=== PATIENT | male | born 1940 | race Caucasian/White ===

== ENCOUNTER → 2017-05-10 | Outpatient (CLI) | payer MEDICARE ==
[~2017-05-10] MED LIST: ACID CONTROLLER20 M1 PO; CARBIDOPA25 MG PO; CUBICIN RF500 MG IV; DAYPRO600 M1 PO; GLIPIZIDE5 MG PO; GLUCOPHAGE1000 MG PO; INVANZ1 GM IV; LIPITOR10 MG PO; Lovenox40 MG/0.4 PO; TENORMIN25 M1 PO; VENLAFAXINE75 M1 PO
[2017-05-10 11:42] LABS: BILIRUBIN NEGATIVE (NEGATIVE); BLOOD TRACE-INTACT (NEGATIVE); CLARITY CLEAR (CLEAR); COLOR YELLOW (YELLOW); GLUCOSE 3+ (NEGATIVE); KETONE NEGATIVE (NEGATIVE); LEUKO ESTERASE NEGATIVE (NEGATIVE); NITRITE NEGATIVE (NEGATIVE); PH 5.5 (5.0-9.0); UROBILINOGEN 0.2 E.U./dl (0.2-1.0)
[2017-05-10 11:52] LABS: BACTERIA TRACE; WBC 0-2 wbc/hpf (0-5)
[2017-05-11 10:09] LABS: CREATININE,URINE 48.7 mg/dL (Not Estab.); MICRO ALBUMIN/CRE RATIO 137.6 (0.0-30.0)
== END | disposition home or self-care (01) ==
LOC: US 07:30 → LAB 07:42
PROVIDERS: Family Medicine
DX: N18.3 Chronic kidney disease, stage 3 (moderate) (principal); E11.9 Type 2 diabetes mellitus without complications; M54.5 Low back pain; N39.9 Disorder of urinary system, unspecified; N28.9 Disorder of kidney and ureter, unspecified

== ENCOUNTER 2017-05-20 09:37 | Inpatient (IN) | payer MEDICARE ==
[~2017-05-20] VITALS: Ht 185.4 cm; Wt 90.9 kg
[2017-05-20] VITALS (8 sets, daily range): BP systolic 128–170; BP diastolic 61–96
[2017-05-20 10:08] LABS: BASO % 0.4 % (0.0-1.0); EOS # 0.3 10*3/uL (0.0-0.4); EOS % 3.7 % (1.0-4.0); HEMATOCRIT 37.4 % (42.0-52.0); HEMOGLOBIN 12.3 g/dl (14.0-18.0); LYMPH # 1.4 10*3/uL (1.3-4.4); LYMPH % 19.1 % (27.0-41.0); MEAN CELL VOLUME 97.4 fl (80.0-94.0); MEAN CORPUSCULAR HGB CONC 32.9 g/dl (33.0-37.0); MEAN PLATELET VOLUME 9.5 fl (9.6-12.3); MONO # 0.6 10*3/uL (0.1-1.0); NEUT # 4.9 10*3/uL (2.3-7.9); NEUT % 68.4 % (47.0-73.0); PLATELET COUNT AUTOMATED 182 10*3/uL (130-400); RED BLOOD COUNT 3.84 10*6/uL (4.50-5.90); RED CELL DISTRI WIDTH 12.2 % (0-14.5); WHITE BLOOD COUNT 7.2 10*3/uL (4.8-10.8)
[2017-05-20 10:24] LABS: ALBUMIN 3.6 gm/dl (3.1-4.5); CREATININE 1.89 mg/dL (0.70-1.30); POTASSIUM 5.2 mmol/L (3.5-5.1); TOTAL PROTEIN 7.6 gm/dL (6.4-8.2)
[2017-05-20 10:25] LABS: TROPONIN I 0.019 ng/ml (<0.045)
[2017-05-20 11:16] LABS: BILIRUBIN NEGATIVE (NEGATIVE); BLOOD TRACE-LYSED (NEGATIVE); CLARITY CLEAR (CLEAR); COLOR YELLOW (YELLOW); GLUCOSE 3+ (NEGATIVE); KETONE NEGATIVE (NEGATIVE); LEUKO ESTERASE NEGATIVE (NEGATIVE); NITRITE NEGATIVE (NEGATIVE); SPECIFIC GRAVITY <= 1.005 (1.005-1.030); UROBILINOGEN 0.2 E.U./dl (0.2-1.0)
[2017-05-20 11:24] LABS: RBC 0-2 rbc/hpf (0-2); WBC 0-2 wbc/hpf (0-5)
[2017-05-20] MEDS ORDERED: AMARYL4 MG PO (11:29)
[2017-05-20] MEDS ORDERED: METFORMIN1000 MG PO (11:29)
[2017-05-20] MEDS ORDERED: TOPROL XL25 MG PO (11:30)
[2017-05-20] MEDS ORDERED: MOBIC15 MG PO (11:31)
[2017-05-20] MEDS ORDERED: ASPIRIN325 M2 PO (11:51)
[2017-05-20] MEDS ORDERED: VICTOZA 2-0.6 MG/0.1 SQ (12:54)
[2017-05-21] VITALS: BP 142/82
[2017-05-21 07:00] LABS: BASO % 0.5 % (0.0-1.0); EOS # 0.2 10*3/uL (0.0-0.4); EOS % 4.1 % (1.0-4.0); HEMATOCRIT 35.3 % (42.0-52.0); HEMOGLOBIN 11.7 g/dl (14.0-18.0); LYMPH # 1.6 10*3/uL (1.3-4.4); LYMPH % 28.2 % (27.0-41.0); MEAN CELL VOLUME 97.5 fl (80.0-94.0); MEAN CORPUSCULAR HGB 32.3 pg (27.0-31.0); MEAN CORPUSCULAR HGB CONC 33.1 g/dl (33.0-37.0); MEAN PLATELET VOLUME 9.1 fl (9.6-12.3); MONO # 0.4 10*3/uL (0.1-1.0); MONO % 7.2 % (3.0-9.0); NEUT # 3.3 10*3/uL (2.3-7.9); NEUT % 59.6 % (47.0-73.0); PLATELET COUNT AUTOMATED 164 10*3/uL (130-400); RED BLOOD COUNT 3.62 10*6/uL (4.50-5.90); RED CELL DISTRI WIDTH 12.2 % (0-14.5); WHITE BLOOD COUNT 5.6 10*3/uL (4.8-10.8)
[2017-05-21 07:38] LABS: ALBUMIN 3.1 gm/dl (3.1-4.5); ALKALINE PHOSPHATASE 104 U/L (45-117); CHLORIDE 105 mmol/L (98-107); CHOLESTEROL 181 mg/dL (<200); CREATININE 1.38 mg/dL (0.70-1.30); HDL CHOLESTEROL 31 mg/dl (40-60); PHOSPHOROUS 2.5 mg/dL (2.5-4.9); POTASSIUM 4.7 mmol/L (3.5-5.1); SGOT/AST 36 IU/L (3-35); SGPT/ALT 53 U/L (12-78); SODIUM 140 mmol/L (136-145); TOTAL PROTEIN 6.6 gm/dL (6.4-8.2); TRIGLYCERIDES 531 mg/dl (<150)
[2017-05-21 07:44] LABS: ACT PARTIAL THROMBO TIME 26.7 SECONDS (20.8-31.5); FREE T4 0.78 ng/dl (0.76-1.46)
[2017-05-21 07:48] LABS: BUN 24 mg/dl (7-24)
[2017-05-21 08:00] VITALS: BP 144/86
[2017-05-21 09:10] LABS: VITAMIN D, 25-HYDROXY 18.5 ng/mL (30-100)
[2017-05-21] MEDS ORDERED: LIPITOR40 MG PO (10:24)
[2017-05-21] MEDS ORDERED: NOVOLOG FL100 UNIT/1 SQ (10:26)
[2017-05-21] MEDS ORDERED: LEVEMIR FL100 UNIT/1 SC (10:26)
== END 2017-05-21 10:56 | disposition home or self-care (01) | DRG 637 ==
LOC: ED 09:37 → 5E 11:05
PROVIDERS: Family Medicine; Nurse Practitioner Family
DX: E11.65 Type 2 diabetes mellitus with hyperglycemia (principal); N17.0 Acute kidney failure with tubular necrosis; E87.1 Hypo-osmolality and hyponatremia; F33.9 Major depressive disorder, recurrent, unspecified; Z79.899 Other long term (current) drug therapy; E87.8 Other disorders of electrolyte and fluid balance, not elsewhere classified; I25.10 Atherosclerotic heart disease of native coronary artery without angina pectoris; D53.9 Nutritional anemia, unspecified; E87.5 Hyperkalemia; R74.0 Nonspecific elevation of levels of transaminase and lactic acid dehydrogenase [LDH]; E78.5 Hyperlipidemia, unspecified; I10 Essential (primary) hypertension; E11.40 Type 2 diabetes mellitus with diabetic neuropathy, unspecified; Z96.653 Presence of artificial knee joint, bilateral; Z83.3 Family history of diabetes mellitus; Z79.82 Long term (current) use of aspirin

== ENCOUNTER → 2017-05-25 | Outpatient (CLI) | payer MEDICARE ==
[~2017-05-25] MED LIST changes: +AMARYL4 MG PO; +ASPIRIN325 M2 PO; +LEVEMIR FL100 UNIT/1 SC; +LIPITOR40 MG PO; +METFORMIN1000 MG PO; +MOBIC15 MG PO; +NOVOLOG FL100 UNIT/1 SQ; +TOPROL XL25 MG PO; +VICTOZA 2-0.6 MG/0.1 SQ
== END | disposition home or self-care (01) ==
LOC: CARD 03:41
DX: I25.2 Old myocardial infarction (principal)

== ENCOUNTER → 2017-06-17 | Outpatient (CLI) | payer MEDICARE ==
[~2017-06-17] MED LIST changes: -ASPIRIN325 M2 PO; +ASPIRIN81 M1 PO; +HYDROCODONE-AC1 EAC1 PO; +Meclizine25 MG PO; +PROMETHAZINE25 M1 PO; +PROZAC20 MG PO; +VICTOZA IJ
--- NOTE | ~2017-06-17 | ST ---
[place], [place] EXERCISE STRESS TEST REPORT NAME: EVERARDO BLISS UNIT #: [id number] ROOM: DOCTOR: DAVINA VIERA [facility],MELINDA BIRTHDATE: [birth year] DOS: 06/17/2017 STRESS CARDIOLITE The patient underwent stress test on stage 2 Earl protocol, up to 7 METS and up to 85% predicted heart rate, 133 per minute. No ischemic changes in the EKG. Isotope was injected and he exercised for a minute after injecting the isotope and myocardial perfusion scan to follow. No complication noted. Moderately deconditioned. Exercise tolerance is suboptimal. MELINDA GHOSH MD CM:STRESS:EXERCISE STRESS TEST REPORT [id number] HIRAL GHOSH MD [facility]
== END | disposition home or self-care (01) ==
LOC: CARD 01:28
DX: I25.2 Old myocardial infarction (principal); E11.9 Type 2 diabetes mellitus without complications; R94.31 Abnormal electrocardiogram [ECG] [EKG]; R53.81 Other malaise

== ENCOUNTER → 2017-06-24 | Outpatient (CLI) | payer MEDICARE ==
[2017-06-24 10:58] LABS: ALBUMIN 3.6 gm/dl (3.1-4.5); BILIRUBIN, DIRECT 0.2 mg/dL (0.0-0.2); CREATININE 1.56 mg/dL (0.70-1.30); POTASSIUM 5.2 mmol/L (3.5-5.1); TOTAL PROTEIN 7.7 gm/dL (6.4-8.2)
[2017-06-24 11:04] LABS: THYROID STIM HORMONE (HS) 2.09 uIU/ml (0.358-4.75)
== END | disposition home or self-care (01) ==
LOC: LAB 10:07
PROVIDERS: Psychiatry & Neurology Neurology
DX: E11.9 Type 2 diabetes mellitus without complications (principal)

== ENCOUNTER 2018-02-04 10:06 | Emergency (ER) | payer MEDICARE ==
[~2018-02-04] VITALS: Ht 185.4 cm; Wt 86.6 kg
[~2018-02-04 10:06] MED LIST changes: +METFORMIN HYD1000 MG PO; -METFORMIN1000 MG PO
[2018-02-04 10:09] VITALS: BP 119/73
== END 2018-02-04 11:48 | disposition home or self-care (01) ==
LOC: ED 10:06
DX: S62.617A Displaced fracture of proximal phalanx of left little finger, initial encounter for closed fracture (principal); I25.10 Atherosclerotic heart disease of native coronary artery without angina pectoris; E78.5 Hyperlipidemia, unspecified; I10 Essential (primary) hypertension; E11.65 Type 2 diabetes mellitus with hyperglycemia; E11.40 Type 2 diabetes mellitus with diabetic neuropathy, unspecified; Z98.890 Other specified postprocedural states; Z79.899 Other long term (current) drug therapy; Z79.82 Long term (current) use of aspirin; W19.XXXA Unspecified fall, initial encounter; Y93.89 Activity, other specified; Y92.89 Other specified places as the place of occurrence of the external cause; Y99.9 Unspecified external cause status

== ENCOUNTER 2018-02-23 12:17 | Inpatient (IN) | payer MEDICARE ==
[~2018-02-23] VITALS: Ht 185.4 cm; Wt 83.6 kg
--- NOTE | ~2018-02-23 | CON ---
[place], [place] REPORT OF CONSULTATION NAME: [facility]ISS [id number] UNIT #: [id number] ROOM: 419 DOCTOR: PHD JESU MARY BIRTHDATE: [birth year] DOS: 02/28/2018 HISTORY OF PRESENT ILLNESS: The patient is a 77-year-old male with history of coronary artery disease, chronic kidney disease, hyperlipidemia, hypertension, and diabetes, who was referred by the hospitalist for memory evaluation. At the present time, the patient is on the 4th floor at [facility]. The patient has been experiencing memory problems for several years. Per his family, he has struggled to pay the bills and experiences fluctuating confusion. A CT of his head performed on 02/27/2018 revealed mild patchy areas of low attenuation in the subcortical and deep periventricular white matter, suggestive of chronic microvascular ischemia. He lives with his second , his first several years ago. He has 3 children. 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 He denied alcohol, tobacco and illegal drug use. PAST MEDICAL HISTORY: Macrocytic anemia, major depressive disorder, neuropathy in addition to those stated above. MEDICATIONS: Solu-Medrol, vitamin D, Lantus, Prozac, Lipitor, Effexor XR, Remeron, Flexeril, Antivert, heparin, Humalog, Zofran, Augmentin, [place] 5/325. SOCIAL HISTORY: The patient was lying in bed comfortably, in no apparent distress. He was oriented to person, place, month and year. He could not name the current president, but could name the past president. He could not give any current events. The patient was able to spell world forwards, but not backwards. Eye contact and social skills were appropriate. Affect was restricted in range and mood was sad. The patient firmly denied suicidal and homicidal ideation, plan, and intent. He has sought pastoral counseling in the past and does not believe he needs mental health treatment at this time. Speech was soft and difficult to decipher. Thought process was circumstantial. Thought content was within normal limits. He did not consistently respond appropriately to questions and demonstrated an ease of confusion in conversation. Insight and judgment were fair. The patient earned a score of 13/30 on the [place] Cognitive assessment with an intact score being 26. Mini trails B and Necker cube copy were impaired. Clock drawing was generally intact, although he forgot to write in the #12. With respect to attention, he was able to produce a minimum of 5 digits forward and 3 digits backwards. He made multiple errors on a test of vigilance and appeared to forget the instructions midway through. He could not produce any correct serial 7 subtractions. Language abilities were impaired with a few small areas of addition. On a test of repetition, he produced 7 words in 1 minute and assessed the verbal fluency, naming was intact. Verbal abstraction was noteworthy for concreteness. On a test of memory, the patient was able to recall 2/5 and 4/5 words on immediate recall trials and 0/5 words with a delayed recall. Performance did not improve with category cues, but improved to 5/5 with multiple choice. Overall, the patient demonstrated cognitive deficits in the areas of executive functioning, attention, language and memory. In particular, his pattern of performance is consistent with a vascular dementia, which would be consistent with his medical history. Other contributing factors to his performance may include medication effects, pain and depression. [place], [place] REPORT OF CONSULTATION NAME: EVERARDO BLISS Jun UNIT #: [id number] ROOM: 419 DOCTOR: JESU, PHD MARY BIRTHDATE: [birth year] DIAGNOSES: Neurocognitive disorder, unspecified; rule out mild vascular neurocognitive disorder, major depressive disorder, recurrent, unspecified. RECOMMENDATIONS: He may benefit from seeing a neurologist to further explore the possibility of vascular dementia. Neuropsychological testing may be beneficial to further assess his cognitive strengths and weaknesses once he is discharged. Thank you very much for this consult. Judy Quarles, PhD CM:CONSTR:REPORT OF CONSULTATION 1725 03/01/18 0135 interface
[2018-02-23 12:27] VITALS: BP 103/62
[2018-02-23 13:03] LABS: BASO % 0.3 % (0.0-1.0); EOS # 0.1 10*3/uL (0.0-0.4); HEMATOCRIT 34.6 % (42.0-52.0); HEMOGLOBIN 11.2 g/dl (14.0-18.0); LYMPH # 0.9 10*3/uL (1.3-4.4); LYMPH % 13.9 % (27.0-41.0); MEAN CELL VOLUME 101.2 fl (80.0-94.0); MEAN CORPUSCULAR HGB 32.7 pg (27.0-31.0); MEAN CORPUSCULAR HGB CONC 32.4 g/dl (33.0-37.0); MEAN PLATELET VOLUME 9.2 fl (9.6-12.3); MONO # 0.7 10*3/uL (0.1-1.0); MONO % 9.9 % (3.0-9.0); NEUT % 74.3 % (47.0-73.0); PLATELET COUNT AUTOMATED 205 10*3/uL (130-400); RED BLOOD COUNT 3.42 10*6/uL (4.50-5.90); RED CELL DISTRI WIDTH 13.3 % (0-14.5); WHITE BLOOD COUNT 6.7 10*3/uL (4.8-10.8)
[2018-02-23 13:12] LABS: ACT PARTIAL THROMBO TIME 26.1 SECONDS (20.8-31.5)
[2018-02-23 13:18] LABS: ALBUMIN 3.1 gm/dl (3.1-4.5); CREATININE 1.7 mg/dL (0.70-1.30); POTASSIUM 4.7 mmol/L (3.5-5.1); TOTAL PROTEIN 7.4 gm/dL (6.4-8.2)
[2018-02-23 14:56] LABS: BILIRUBIN NEGATIVE (NEGATIVE); BLOOD TRACE-INTACT (NEGATIVE); CLARITY CLEAR (CLEAR); COLOR YELLOW (YELLOW); GLUCOSE 3+ (NEGATIVE); KETONE NEGATIVE (NEGATIVE); LEUKO ESTERASE NEGATIVE (NEGATIVE); NITRITE NEGATIVE (NEGATIVE); UROBILINOGEN 0.2 E.U./dl (0.2-1.0)
[2018-02-23 15:10] LABS: BACTERIA 1+
[2018-02-23 15:11] LABS: MUCOUS TRACE
[2018-02-23 15:54] VITALS: BP 124/76
[2018-02-23 16:00] VITALS: BP 131/78
[2018-02-23] MEDS ORDERED: CYCLOBENZAPRINE10 MG PO (19:58)
[2018-02-23 20:00] VITALS: BP 128/86
[2018-02-23] MEDS ORDERED: SILDENAFIL20 M1 PO (20:02)
[2018-02-23] MEDS ORDERED: REMERON15 M2 PO (20:03)
[2018-02-23] MEDS ORDERED: LANTUS SOL100 UNIT/1 SQ (20:04)
[2018-02-24] VITALS: BP 124/70
[2018-02-24 06:53] LABS: BASO % 0.4 % (0.0-1.0); EOS # 0.2 10*3/uL (0.0-0.4); EOS % 2.1 % (1.0-4.0); HEMATOCRIT 35.4 % (42.0-52.0); HEMOGLOBIN 11.7 g/dl (14.0-18.0); LYMPH # 1.4 10*3/uL (1.3-4.4); LYMPH % 18.7 % (27.0-41.0); MEAN CELL VOLUME 100.3 fl (80.0-94.0); MEAN CORPUSCULAR HGB 33.1 pg (27.0-31.0); MEAN CORPUSCULAR HGB CONC 33.1 g/dl (33.0-37.0); MEAN PLATELET VOLUME 9.8 fl (9.6-12.3); MONO # 0.6 10*3/uL (0.1-1.0); MONO % 8.5 % (3.0-9.0); NEUT # 5.3 10*3/uL (2.3-7.9); PLATELET COUNT AUTOMATED 237 10*3/uL (130-400); RED BLOOD COUNT 3.53 10*6/uL (4.50-5.90); RED CELL DISTRI WIDTH 13.3 % (0-14.5); WHITE BLOOD COUNT 7.5 10*3/uL (4.8-10.8)
[2018-02-24 07:18] LABS: ACT PARTIAL THROMBO TIME 26.7 SECONDS (20.8-31.5)
[2018-02-24 07:31] LABS: BUN 38 mg/dl (7-24); CHLORIDE 102 mmol/L (98-107); CREATININE 1.34 mg/dL (0.70-1.30); PHOSPHOROUS 3.5 mg/dL (2.5-4.9); POTASSIUM 4.2 mmol/L (3.5-5.1); SODIUM 135 mmol/L (136-145)
[2018-02-24 07:40] LABS: FREE T4 0.91 ng/dl (0.76-1.46)
[2018-02-24 08:00] VITALS: BP 134/74
[2018-02-24 08:06] LABS: VITAMIN D, 25-HYDROXY 28.3 ng/mL (30-100)
[2018-02-24 12:00] VITALS: BP 120/61
[2018-02-24 16:00] VITALS: BP 110/68
[2018-02-24 20:00] VITALS: BP 121/66
[2018-02-25] VITALS: BP 118/82
[2018-02-25 06:53] LABS: BASO % 0.1 % (0.0-1.0); HEMOGLOBIN 10.4 g/dl (14.0-18.0); LYMPH # 0.6 10*3/uL (1.3-4.4); LYMPH % 6.9 % (27.0-41.0); MEAN CELL VOLUME 99.1 fl (80.0-94.0); MEAN CORPUSCULAR HGB 32.2 pg (27.0-31.0); MEAN CORPUSCULAR HGB CONC 32.5 g/dl (33.0-37.0); MEAN PLATELET VOLUME 9.7 fl (9.6-12.3); MONO # 0.3 10*3/uL (0.1-1.0); MONO % 3.6 % (3.0-9.0); NEUT # 7.1 10*3/uL (2.3-7.9); NEUT % 88.7 % (47.0-73.0); PLATELET COUNT AUTOMATED 199 10*3/uL (130-400); RED BLOOD COUNT 3.23 10*6/uL (4.50-5.90); RED CELL DISTRI WIDTH 12.9 % (0-14.5)
[2018-02-25 06:58] LABS: BUN 41 mg/dl (7-24); CHLORIDE 103 mmol/L (98-107); CREATININE 1.35 mg/dL (0.70-1.30); POTASSIUM 4.6 mmol/L (3.5-5.1); SODIUM 135 mmol/L (136-145)
[2018-02-25 08:00] VITALS: BP 144/64
[2018-02-25 12:00] VITALS: BP 141/76
[2018-02-25 16:00] VITALS: BP 131/57
[2018-02-25 20:00] VITALS: BP 11/60
[2018-02-26] VITALS: BP 124/65
[2018-02-26 06:05] LABS: HEMATOCRIT 31.7 % (42.0-52.0); HEMOGLOBIN 10.6 g/dl (14.0-18.0); MEAN CELL VOLUME 98.1 fl (80.0-94.0); MEAN CORPUSCULAR HGB 32.8 pg (27.0-31.0); MEAN CORPUSCULAR HGB CONC 33.4 g/dl (33.0-37.0); MEAN PLATELET VOLUME 9.2 fl (9.6-12.3); PLATELET COUNT AUTOMATED 214 10*3/uL (130-400); RED BLOOD COUNT 3.23 10*6/uL (4.50-5.90); RED CELL DISTRI WIDTH 12.9 % (0-14.5); WHITE BLOOD COUNT 11.5 10*3/uL (4.8-10.8)
[2018-02-26 06:28] LABS: BUN 37 mg/dl (7-24); CHLORIDE 105 mmol/L (98-107); CREATININE 1.22 mg/dL (0.70-1.30); POTASSIUM 4.8 mmol/L (3.5-5.1); SODIUM 138 mmol/L (136-145)
[2018-02-26 07:14] LABS: PLATELET SUFFICIENCY NORMAL (NORMAL); TOTAL CELLS COUNTED 100 #CELLS
[2018-02-26 07:15] LABS: TOXIC GRANULATION SLIGHT
[2018-02-26 08:00] VITALS: BP 132/76
[2018-02-26 12:00] VITALS: BP 126/73
[2018-02-26 16:00] VITALS: BP 129/78
[2018-02-26 20:00] VITALS: BP 123/58
[2018-02-27] VITALS: BP 145/71
[2018-02-27 08:00] VITALS: BP 132/72
[2018-02-27 12:00] VITALS: BP 120/68
[2018-02-27 16:00] VITALS: BP 105/57
[2018-02-27 17:45] LABS: BILIRUBIN NEGATIVE (NEGATIVE); BLOOD TRACE-LYSED (NEGATIVE); CLARITY CLEAR (CLEAR); COLOR YELLOW (YELLOW); GLUCOSE 3+ (NEGATIVE); KETONE NEGATIVE (NEGATIVE); LEUKO ESTERASE NEGATIVE (NEGATIVE); NITRITE NEGATIVE (NEGATIVE); UROBILINOGEN 0.2 E.U./dl (0.2-1.0)
[2018-02-27 17:56] LABS: BACTERIA TRACE; RBC 0-2 rbc/hpf (0-2); WBC 0-2 wbc/hpf (0-5)
[2018-02-27 20:00] VITALS: BP 142/71
[2018-02-28] VITALS: BP 144/71
[2018-02-28 06:43] LABS: BASO % 0.2 % (0.0-1.0); EOS % 0.2 % (1.0-4.0); HEMATOCRIT 36.4 % (42.0-52.0); HEMOGLOBIN 12.1 g/dl (14.0-18.0); LYMPH # 1.4 10*3/uL (1.3-4.4); LYMPH % 11.2 % (27.0-41.0); MEAN CELL VOLUME 98.1 fl (80.0-94.0); MEAN CORPUSCULAR HGB 32.6 pg (27.0-31.0); MEAN CORPUSCULAR HGB CONC 33.2 g/dl (33.0-37.0); MEAN PLATELET VOLUME 9.6 fl (9.6-12.3); MONO # 0.9 10*3/uL (0.1-1.0); MONO % 7.3 % (3.0-9.0); NEUT # 10.2 10*3/uL (2.3-7.9); NEUT % 79.8 % (47.0-73.0); RED BLOOD COUNT 3.71 10*6/uL (4.50-5.90); RED CELL DISTRI WIDTH 13.2 % (0-14.5); WHITE BLOOD COUNT 12.8 10*3/uL (4.8-10.8)
[2018-02-28 06:52] LABS: CREATININE 1.46 mg/dL (0.70-1.30)
[2018-02-28 07:06] LABS: PLATELET COUNT AUTOMATED 280 10*3/uL (130-400)
[2018-02-28 08:00] VITALS: BP 129/71
[2018-02-28 12:00] VITALS: BP 105/57
[2018-02-28 16:00] VITALS: BP 108/71
[2018-02-28 20:00] VITALS: BP 121/77
[2018-03-01] VITALS: BP 115/64
[2018-03-01 07:00] LABS: BASO % 0.1 % (0.0-1.0); EOS # 0.1 10*3/uL (0.0-0.4); EOS % 0.4 % (1.0-4.0); HEMATOCRIT 33.3 % (42.0-52.0); HEMOGLOBIN 11.2 g/dl (14.0-18.0); LYMPH # 1.5 10*3/uL (1.3-4.4); LYMPH % 9.4 % (27.0-41.0); MEAN CELL VOLUME 97.4 fl (80.0-94.0); MEAN CORPUSCULAR HGB 32.7 pg (27.0-31.0); MEAN CORPUSCULAR HGB CONC 33.6 g/dl (33.0-37.0); MEAN PLATELET VOLUME 9.2 fl (9.6-12.3); MONO % 6.5 % (3.0-9.0); NEUT # 12.9 10*3/uL (2.3-7.9); NEUT % 82.3 % (47.0-73.0); PLATELET COUNT AUTOMATED 251 10*3/uL (130-400); RED BLOOD COUNT 3.42 10*6/uL (4.50-5.90); WHITE BLOOD COUNT 15.7 10*3/uL (4.8-10.8)
[2018-03-01 07:30] LABS: CHLORIDE 103 mmol/L (98-107); POTASSIUM 3.8 mmol/L (3.5-5.1); SODIUM 138 mmol/L (136-145)
[2018-03-01 07:40] LABS: ALBUMIN 2.8 gm/dl (3.1-4.5); ALKALINE PHOSPHATASE 161 U/L (45-117); BUN 37 mg/dl (7-24); CREATININE 1.38 mg/dL (0.70-1.30); SGOT/AST 17 IU/L (3-35); SGPT/ALT 36 U/L (12-78); TOTAL PROTEIN 6.9 gm/dL (6.4-8.2)
[2018-03-01 08:00] VITALS: BP 159/84
[2018-03-01 11:36] VITALS: BP 120/69
[2018-03-01] MEDS ORDERED: MAGIC MOUTHWASH PO (13:21)
[2018-03-01] MEDS ORDERED: VITAMIN D5000 UNI1 PO (13:21)
[2018-03-01] MEDS ORDERED: AUGMENTIN 875875 MG PO (13:21)
== END 2018-03-01 14:56 | disposition other institution (70) | DRG 551 ==
LOC: ED 12:17 → EDHOLD 15:27 → 4E 15:27 → EDHOLD 16:01 → 4E 16:14
PROVIDERS: Emergency Medicine; Internal Medicine; Student in an Organized Health Care Education/Training Program
DX: S32.010A Wedge compression fracture of first lumbar vertebra, initial encounter for closed fracture (principal); N17.0 Acute kidney failure with tubular necrosis; E44.0 Moderate protein-calorie malnutrition; E87.1 Hypo-osmolality and hyponatremia; F33.9 Major depressive disorder, recurrent, unspecified; N18.3 Chronic kidney disease, stage 3 (moderate); E11.65 Type 2 diabetes mellitus with hyperglycemia; I25.10 Atherosclerotic heart disease of native coronary artery without angina pectoris; E78.5 Hyperlipidemia, unspecified; E11.40 Type 2 diabetes mellitus with diabetic neuropathy, unspecified; Z96.653 Presence of artificial knee joint, bilateral; W10.9XXA Fall (on) (from) unspecified stairs and steps, initial encounter; I12.9 Hypertensive chronic kidney disease with stage 1 through stage 4 chronic kidney disease, or unspecified chronic kidney disease; E11.22 Type 2 diabetes mellitus with diabetic chronic kidney disease; R74.8 Abnormal levels of other serum enzymes; R82.71 Bacteriuria; F01.50 Vascular dementia, unspecified severity, without behavioral disturbance, psychotic disturbance, mood disturbance, and anxiety; D53.9 Nutritional anemia, unspecified; K12.1 Other forms of stomatitis; E55.9 Vitamin D deficiency, unspecified; Y93.89 Activity, other specified; Y92.89 Other specified places as the place of occurrence of the external cause; Z79.4 Long term (current) use of insulin; Z83.3 Family history of diabetes mellitus; Y99.8 Other external cause status; Z68.24 Body mass index [BMI] 24.0-24.9, adult

== ENCOUNTER → 2018-04-13 | Day surgery (SDC) | payer MEDICARE ==
[~2018-04-13] VITALS: Ht 185.4 cm
[~2018-04-13] MED LIST changes: +AUGMENTIN 875875 MG PO; +CYCLOBENZAPRINE10 MG PO; +LANTUS SOL100 UNIT/1 SQ; +MAGIC MOUTHWASH PO; +REMERON15 M2 PO; +SILDENAFIL20 M1 PO; +VITAMIN D5000 UNI1 PO
--- NOTE | ~2018-04-13 | O ---
[place], [place] OPERATIVE NOTE [id number] UNIT #: [id number] ROOM: DOCTOR: CESAR RANDHAWA MD BIRTHDATE: [birth year] DOS: 04/13/2018 PREOPERATIVE DIAGNOSIS: Cataract, right eye. POSTOPERATIVE DIAGNOSIS: Cataract, right eye. OPERATION: Extracapsular cataract extraction by phacoemulsification with posterior chamber intraocular lens implantation, right eye. ANESTHESIA: General anesthetic. OPERATIVE FINDINGS AND PROCEDURE: 2% Xylocaine topical anesthetic gel was applied to the eye in the preop area. The patient was taken to the operating room and prepped and draped in the standard fashion for sterile intraocular surgery. A time out procedure was performed verifying correct patient, correct site and corrects lens with Adelia Randhawa M.D. The operating microscope was swung into position and the lid speculum was inserted. Using a Jennifer paracentesis blade, a paracentesis was made through clear cornea. Viscoelastic was used to fill the anterior chamber. Using a metal keratome a 2.4 mm self-sealing clear corneal cataract incision was made temporally at the limbus. At this point in the procedure, the patient began to move and did not respond to verbal requests and commands to hold still and additional intravenous sedation did not improve this situation, so the drapes were removed and general anesthesia was administered. The patient was then reprepped and draped in the standard fashion for sterile intraocular procedure and the lid speculum was removed and the procedure continued. Using a pre-bent 25 gauge cystotome needle, a standard continuous curvilinear capsulorrhexis was performed. The anterior capsule was removed with forceps. The lens nucleus was hydrodissected and phacoemulsified in the posterior chamber. Cortical material was removed with the irrigation aspiration hand piece and the posterior capsule was then polished with a curet under irrigation. The posterior chamber and capsular bag were filled with viscoelastic. A posterior chamber intraocular lens manufactured by: [employer]c, Model ____, and ____ diopters in strength were then inserted into the posterior chamber and within the capsular bag using the lens cartridge and injector system. Viscoelastic was removed using the irrigation aspiration handpiece. The anterior chamber was filled with balanced salt solution through the paracentesis. Both the paracentesis site and cataract incisions were hydrated with BSS and verified to be water-tight and self-sealing. Cefuroxime 1 mg/0.1 mL was injected into the anterior chamber through the paracentesis site. The incision checked to be water-tight using a Weck-Teagan sponge. The integrity of the cataract wound and ocular tension were checked. Lid speculum and drapes were removed. One drops of ofloxacin was applied to the eye. Anesthesia was reversed and transported from the operating room to the recovery room in satisfactory condition. [place], [place] OPERATIVE NOTE NAME: EVERARDO BLISS UNIT #: [id number] ROOM: DOCTOR: CESAR RANDHAWA MD BIRTHDATE: [birth year] CESAR RANDHAWA MD CM:OPRECORD:OPERATIVE NOTE 1052 1207 CESAR RANDHAWA MD 04/13/18 1206 interface
[2018-04-13 09:31] VITALS: BP 130/74
[2018-04-13 11:00] VITALS: BP 134/73
[2018-04-13 11:15] VITALS: BP 148/80
[2018-04-13 11:30] VITALS: BP 129/80
[2018-04-13 11:45] VITALS: BP 135/81
[2018-04-13 12:00] VITALS: BP 138/73
== END ==
LOC: SDC 04-07 09:30
DX: E11.36 Type 2 diabetes mellitus with diabetic cataract (principal); H25.811 Combined forms of age-related cataract, right eye; I25.10 Atherosclerotic heart disease of native coronary artery without angina pectoris; I10 Essential (primary) hypertension; F32.9 Major depressive disorder, single episode, unspecified; Z79.899 Other long term (current) drug therapy; Z98.890 Other specified postprocedural states; Z79.84 Long term (current) use of oral hypoglycemic drugs; Z83.3 Family history of diabetes mellitus

== ENCOUNTER → 2018-05-04 | Day surgery (SDC) | payer MEDICARE ==
[~2018-05-04] VITALS: Ht 185.4 cm; Wt 81.6 kg
[~2018-05-04] MED LIST changes: +CELEXA20 MG PO; +CEPHALEXIN500 M1 PO; +FLOMAX0.4 MG PO; +MYRBETRIQ50 M1 PO; +PREDNISONE20 M1 PO; +RIVASTIGMINE T1.5 M1 PO; +VITAMIN D32000 UNI1 PO
--- NOTE | ~2018-05-04 | O ---
[place], [place] OPERATIVE NOTE [id number] UN[facility] #: [id number] ROOM: DOCTOR: CESAR RANDHAWA MD BIRTHDATE: [birth year] DOS: 05/04/2018 PREOPERATIVE DIAGNOSIS: Cataract, left eye. POSTOPERATIVE DIAGNOSIS: Cataract, left eye. OPERATION: Extracapsular cataract extraction by phacoemulsification with posterior chamber intraocular lens implantation, left eye. ANESTHESIA: Monitored standby. OPERATIVE FINDINGS AND PROCEDURE: 2% Xylocaine topical anesthetic gel was applied to the eye in the preop area. The patient was taken to the operating room and prepped and draped in the standard fashion for sterile intraocular surgery. A time out procedure was performed verifying correct patient, correct site and corrects lens with Adelia Randhawa M.D. The operating microscope was swung into position and the lid speculum was inserted. Using a Jennifer paracentesis blade, a paracentesis was made through clear cornea. Viscoelastic was used to fill the anterior chamber. Using a metal keratome a 2.4 mm self-sealing clear corneal cataract incision was made temporally at the limbus. Using a pre-bent 25 gauge cystotome needle, a standard continuous curvilinear capsulorrhexis was performed. The anterior capsule was removed with forceps. The lens nucleus was hydrodissected and phacoemulsified in the posterior chamber. Cortical material was removed with the irrigation aspiration hand piece and the posterior capsule was then polished with a curet under irrigation. The posterior chamber and capsular bag were filled with viscoelastic. A posterior chamber intraocular lens manufactured by: Alec, Model #AU00T0, and 21.0 diopters in strength were then inserted into the posterior chamber and within the capsular bag using the lens cartridge and injector system. Viscoelastic was removed using the irrigation aspiration handpiece. The anterior chamber was filled with balanced salt solution through the paracentesis. Both the paracentesis site and cataract incisions were hydrated with BSS and verified to be water-tight and self-sealing. Cefuroxime 1 mg/0.1 mL was injected into the anterior chamber through the paracentesis site. The incision checked to be water-tight using a Weck-Teagan sponge. The integrity of the cataract wound and ocular tension were checked. Lid speculum and drapes were removed. The patient was transferred from the operating room to the recovery room in satisfactory condition. [place], [place] OPERATIVE NOTE NAME: EVERARDO BLISS UNIT #: [id number] ROOM: DOCTOR: CESAR RANDHAWA MD BIRTHDATE: [birth year] CESAR RANDHAWA MD CM:OPRECORD:OPERATIVE NOTE 2 0 CESAR RANDHAWA MD 05/04/18829 interface
[2018-05-04 06:40] VITALS: BP 141/81
[2018-05-04 08:13] VITALS: BP 109/50
[2018-05-04 08:26] VITALS: BP 140/78
[2018-05-04 08:46] VITALS: BP 164/86
== END | disposition home or self-care (01) ==
LOC: SDC 04-29 08:00
DX: H25.812 Combined forms of age-related cataract, left eye (principal); E78.5 Hyperlipidemia, unspecified; M19.90 Unspecified osteoarthritis, unspecified site; I10 Essential (primary) hypertension; E11.9 Type 2 diabetes mellitus without complications; I25.10 Atherosclerotic heart disease of native coronary artery without angina pectoris; F32.9 Major depressive disorder, single episode, unspecified; Z98.41 Cataract extraction status, right eye; Z96.1 Presence of intraocular lens; Z79.84 Long term (current) use of oral hypoglycemic drugs; Z79.899 Other long term (current) drug therapy; Z96.653 Presence of artificial knee joint, bilateral; Z96.612 Presence of left artificial shoulder joint; Z83.3 Family history of diabetes mellitus

== ENCOUNTER 2018-05-20 17:06 | Inpatient (IN) | payer MEDICARE ==
[~2018-05-20] VITALS: Ht 185.4 cm; Wt 81.4 kg
--- NOTE | ~2018-05-20 | CON ---
[place], [place] REPORT OF CONSULTATION NAME: EVERARDO BLISS UNIT #: [id number] ROOM: 409 DOCTOR: IRA CARTWRIGHT CNP BIRTHDATE: [birth year] DOS: 05/21/2018 PSYCHIATRIC CONSULTATION NOTE CHIEF COMPLAINT: "I am doing a lot better today than I was yesterday. HISTORY OF PRESENT ILLNESS: This is a 78-year-old white male with a history of diabetes, dementia, and depression, who presented to [facility] yesterday due to generalized weakness and dizziness. The patient's family reported to staff that they believe he is not safe to be at home. He has been having outbursts that are out of character for him. He has been sleeping all day, and awakens at night, slamming cabinets and doors. His reports that he has been getting increasingly confused and is sometimes hard to deal with. She also reported that he has been increasingly depressed. He was started on another depression medication 2 days ago, but just started it the first dose yesterday. The patient reports to me that he came to the hospital because he fell in his kitchen. MENTAL STATUS: The patient is alert and oriented to person, place, and time with some memory gaps. There is no overt nisreen or hypomania noted. He was pleasant and cooperative with me. No paranoia or delusions noted. No auditory or visual hallucinations noted. His mood was calm. No agitation or aggression noted. His affect was congruent with mood. DIAGNOSES: Major depressive disorder, anxiety, and unspecified dementia. PLAN: After meeting with the patient, I have decided to start the patient on Exelon capsules 1.5 mg twice a day for 4 weeks. Plan would be to increase the Exelon to 3 mg twice a day at that time to increase his awareness and cognition as well as to help him continue to participate in his activities of daily living. Plan for the patient to return home once he is considered medically stable and follow up with his psychiatrist as scheduled. Should you require any further intervention, please feel free to reconsult me at any time. Ira Cartwright CNP CM:CONSTR:REPORT OF CONSULTATION 1234 05/21/18 7436 interface
--- NOTE | ~2018-05-20 | EKG ---
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
[~2018-05-20 17:06] MED LIST changes: -CELEXA20 MG PO; -CEPHALEXIN500 M1 PO; -FLOMAX0.4 MG PO; -MYRBETRIQ50 M1 PO; -PREDNISONE20 M1 PO; -RIVASTIGMINE T1.5 M1 PO; -VITAMIN D32000 UNI1 PO
[2018-05-20 17:08] VITALS: BP 104/64
[2018-05-20 18:25] LABS: BASO % 0.3 % (0.0-1.0); EOS # 0.1 10*3/uL (0.0-0.4); HEMATOCRIT 38.2 % (42.0-52.0); HEMOGLOBIN 12.8 g/dl (14.0-18.0); LYMPH # 1.3 10*3/uL (1.3-4.4); MEAN CORPUSCULAR HGB 33.2 pg (27.0-31.0); MEAN CORPUSCULAR HGB CONC 33.5 g/dl (33.0-37.0); MONO # 0.5 10*3/uL (0.1-1.0); MONO % 5.6 % (3.0-9.0); NEUT # 6.8 10*3/uL (2.3-7.9); NEUT % 77.5 % (47.0-73.0); PLATELET COUNT AUTOMATED 215 10*3/uL (130-400); RED BLOOD COUNT 3.86 10*6/uL (4.50-5.90); RED CELL DISTRI WIDTH 12.9 % (0-14.5); WHITE BLOOD COUNT 8.7 10*3/uL (4.8-10.8)
[2018-05-20 18:39] LABS: ALBUMIN 3.4 gm/dl (3.1-4.5); CREATININE 2.25 mg/dL (0.70-1.30); POTASSIUM 5.3 mmol/L (3.5-5.1); TOTAL PROTEIN 7.7 gm/dL (6.4-8.2)
[2018-05-20 19:01] VITALS: BP 117/75
[2018-05-20 20:00] VITALS: BP 103/65
[2018-05-20 20:15] VITALS: BP 104/60
[2018-05-20] MEDS ORDERED: CELEXA20 MG PO (23:57)
[2018-05-20] MEDS ORDERED: MYRBETRIQ50 M1 PO (23:58)
[2018-05-20] MEDS ORDERED: FLOMAX0.4 MG PO (23:58)
[2018-05-21] VITALS: BP 107/63
[2018-05-21 01:21] LABS: BILIRUBIN NEGATIVE (NEGATIVE); BLOOD NEGATIVE (NEGATIVE); CLARITY SL CLOUDY (CLEAR); COLOR YELLOW (YELLOW); GLUCOSE TRACE (NEGATIVE); KETONE NEGATIVE (NEGATIVE); LEUKO ESTERASE NEGATIVE (NEGATIVE); NITRITE NEGATIVE (NEGATIVE); PH 5.5 (5.0-9.0); SPECIFIC GRAVITY 1.025 (1.005-1.030); UROBILINOGEN 0.2 E.U./dl (0.2-1.0)
[2018-05-21 01:39] LABS: BACTERIA 2+; HYALINE CAST 35-40; MUCOUS 1+; RBC 0-2 rbc/hpf (0-2)
[2018-05-21 06:12] LABS: BASO % 0.6 % (0.0-1.0); EOS # 0.2 10*3/uL (0.0-0.4); EOS % 2.5 % (1.0-4.0); HEMATOCRIT 34.1 % (42.0-52.0); HEMOGLOBIN 11.1 g/dl (14.0-18.0); LYMPH # 1.8 10*3/uL (1.3-4.4); LYMPH % 25.3 % (27.0-41.0); MEAN CORPUSCULAR HGB 31.9 pg (27.0-31.0); MEAN CORPUSCULAR HGB CONC 32.6 g/dl (33.0-37.0); MEAN PLATELET VOLUME 9.7 fl (9.6-12.3); MONO # 0.6 10*3/uL (0.1-1.0); MONO % 8.7 % (3.0-9.0); NEUT # 4.5 10*3/uL (2.3-7.9); NEUT % 62.5 % (47.0-73.0); PLATELET COUNT AUTOMATED 179 10*3/uL (130-400); RED BLOOD COUNT 3.48 10*6/uL (4.50-5.90); RED CELL DISTRI WIDTH 12.9 % (0-14.5); WHITE BLOOD COUNT 7.2 10*3/uL (4.8-10.8)
[2018-05-21 06:42] LABS: ACT PARTIAL THROMBO TIME 24.3 SECONDS (20.8-31.5)
[2018-05-21 06:44] LABS: CREATININE 1.74 mg/dL (0.70-1.30); PHOSPHOROUS 3.9 mg/dL (2.5-4.9)
[2018-05-21 06:51] LABS: THYROID STIM HORMONE (HS) 1.94 uIU/ml (0.358-4.75)
[2018-05-21 08:00] VITALS: BP 130/63
[2018-05-21 12:00] VITALS: BP 103/59
[2018-05-21 16:00] VITALS: BP 119/78
[2018-05-21 20:00] VITALS: BP 131/77
[2018-05-22] VITALS: BP 125/94
[2018-05-22 06:03] LABS: BASO % 0.4 % (0.0-1.0); EOS # 0.2 10*3/uL (0.0-0.4); EOS % 2.9 % (1.0-4.0); HEMATOCRIT 31.4 % (42.0-52.0); HEMOGLOBIN 10.4 g/dl (14.0-18.0); LYMPH # 1.6 10*3/uL (1.3-4.4); LYMPH % 29.8 % (27.0-41.0); MEAN CELL VOLUME 98.7 fl (80.0-94.0); MEAN CORPUSCULAR HGB 32.7 pg (27.0-31.0); MEAN CORPUSCULAR HGB CONC 33.1 g/dl (33.0-37.0); MEAN PLATELET VOLUME 9.9 fl (9.6-12.3); MONO # 0.5 10*3/uL (0.1-1.0); MONO % 8.9 % (3.0-9.0); NEUT # 3.2 10*3/uL (2.3-7.9); NEUT % 57.5 % (47.0-73.0); PLATELET COUNT AUTOMATED 173 10*3/uL (130-400); RED BLOOD COUNT 3.18 10*6/uL (4.50-5.90); RED CELL DISTRI WIDTH 12.8 % (0-14.5); WHITE BLOOD COUNT 5.5 10*3/uL (4.8-10.8)
[2018-05-22 06:21] LABS: CREATININE 1.52 mg/dL (0.70-1.30); PHOSPHOROUS 3.3 mg/dL (2.5-4.9); POTASSIUM 4.1 mmol/L (3.5-5.1)
[2018-05-22 08:00] VITALS: BP 128/74
[2018-05-22 12:00] VITALS: BP 138/70
[2018-05-22 16:00] VITALS: BP 137/64
[2018-05-22 20:00] VITALS: BP 145/77
[2018-05-23] VITALS: BP 119/71
[2018-05-23 06:08] LABS: BASO % 0.5 % (0.0-1.0); EOS # 0.2 10*3/uL (0.0-0.4); EOS % 2.9 % (1.0-4.0); HEMATOCRIT 33.1 % (42.0-52.0); HEMOGLOBIN 10.9 g/dl (14.0-18.0); LYMPH # 1.4 10*3/uL (1.3-4.4); LYMPH % 25.1 % (27.0-41.0); MEAN CELL VOLUME 99.1 fl (80.0-94.0); MEAN CORPUSCULAR HGB 32.6 pg (27.0-31.0); MEAN CORPUSCULAR HGB CONC 32.9 g/dl (33.0-37.0); MEAN PLATELET VOLUME 9.9 fl (9.6-12.3); MONO # 0.5 10*3/uL (0.1-1.0); MONO % 8.1 % (3.0-9.0); NEUT # 3.5 10*3/uL (2.3-7.9); NEUT % 62.9 % (47.0-73.0); PLATELET COUNT AUTOMATED 178 10*3/uL (130-400); RED BLOOD COUNT 3.34 10*6/uL (4.50-5.90); RED CELL DISTRI WIDTH 12.8 % (0-14.5); WHITE BLOOD COUNT 5.5 10*3/uL (4.8-10.8)
[2018-05-23 06:26] LABS: CREATININE 1.51 mg/dL (0.70-1.30); POTASSIUM 4.8 mmol/L (3.5-5.1)
[2018-05-23 08:00] VITALS: BP 131/74
[2018-05-23] MEDS ORDERED: RIVASTIGMINE T1.5 M1 PO (11:08)
[2018-05-23] MEDS ORDERED: VITAMIN D32000 UNI1 PO (11:08)
[2018-05-23 12:00] VITALS: BP 96/70
== END 2018-05-23 12:58 | disposition home health service (06) | DRG 683 ==
LOC: ED 17:06 → EDHOLD 19:10 → 4E 19:10
PROVIDERS: Emergency Medicine; Student in an Organized Health Care Education/Training Program; ADMIT Internal Medicine
DX: N17.0 Acute kidney failure with tubular necrosis (principal); E44.0 Moderate protein-calorie malnutrition; F33.1 Major depressive disorder, recurrent, moderate; R27.0 Ataxia, unspecified; N18.3 Chronic kidney disease, stage 3 (moderate); E86.0 Dehydration; R00.0 Tachycardia, unspecified; D72.810 Lymphocytopenia; E87.5 Hyperkalemia; E11.22 Type 2 diabetes mellitus with diabetic chronic kidney disease; E11.65 Type 2 diabetes mellitus with hyperglycemia; E11.42 Type 2 diabetes mellitus with diabetic polyneuropathy; E55.9 Vitamin D deficiency, unspecified; F03.90 Unspecified dementia, unspecified severity, without behavioral disturbance, psychotic disturbance, mood disturbance, and anxiety; I25.10 Atherosclerotic heart disease of native coronary artery without angina pectoris; I12.9 Hypertensive chronic kidney disease with stage 1 through stage 4 chronic kidney disease, or unspecified chronic kidney disease; Z96.653 Presence of artificial knee joint, bilateral; Z83.3 Family history of diabetes mellitus; Z79.84 Long term (current) use of oral hypoglycemic drugs; Z79.899 Other long term (current) drug therapy; Z91.81 History of falling; Z68.23 Body mass index [BMI] 23.0-23.9, adult

== ENCOUNTER → 2018-07-04 | Outpatient (CLI) | payer MEDICARE ==
[~2018-07-04] MED LIST changes: +CELEXA20 MG PO; +CEPHALEXIN500 M1 PO; +FLOMAX0.4 MG PO; +MYRBETRIQ50 M1 PO; +PREDNISONE20 M1 PO; +RIVASTIGMINE T1.5 M1 PO; +VITAMIN D32000 UNI1 PO
[2018-07-04 08:10] LABS: BILIRUBIN NEGATIVE (NEGATIVE); BLOOD NEGATIVE (NEGATIVE); CLARITY CLEAR (CLEAR); COLOR YELLOW (YELLOW); GLUCOSE 1+ (NEGATIVE); KETONE NEGATIVE (NEGATIVE); LEUKO ESTERASE NEGATIVE (NEGATIVE); NITRITE NEGATIVE (NEGATIVE); PH 5.5 (5.0-9.0); SPECIFIC GRAVITY <= 1.005 (1.005-1.030); UROBILINOGEN 0.2 E.U./dl (0.2-1.0)
[2018-07-04 08:15] LABS: BASO % 0.5 % (0.0-1.0); EOS # 0.2 10*3/uL (0.0-0.4); EOS % 3.5 % (1.0-4.0); HEMATOCRIT 34.3 % (42.0-52.0); HEMOGLOBIN 11.2 g/dl (14.0-18.0); LYMPH # 1.6 10*3/uL (1.3-4.4); MEAN CELL VOLUME 101.2 fl (80.0-94.0); MEAN CORPUSCULAR HGB CONC 32.7 g/dl (33.0-37.0); MEAN PLATELET VOLUME 9.4 fl (9.6-12.3); MONO # 0.5 10*3/uL (0.1-1.0); MONO % 7.7 % (3.0-9.0); NEUT # 4.1 10*3/uL (2.3-7.9); PLATELET COUNT AUTOMATED 163 10*3/uL (130-400); RED BLOOD COUNT 3.39 10*6/uL (4.50-5.90); RED CELL DISTRI WIDTH 12.9 % (0-14.5); WHITE BLOOD COUNT 6.5 10*3/uL (4.8-10.8)
[2018-07-04 08:35] LABS: URINE CREATININE RANDOM 57.9 mg/dL
[2018-07-04 08:59] LABS: ALBUMIN 3.3 gm/dl (3.1-4.5); CREATININE 1.91 mg/dL (0.70-1.30); FREE T4 0.73 ng/dl (0.76-1.46); PHOSPHOROUS 3.4 mg/dL (2.5-4.9); POTASSIUM 4.8 mmol/L (3.5-5.1); THYROID STIM HORMONE (HS) 3.03 uIU/ml (0.358-4.75)
[2018-07-04 09:03] LABS: FERRITIN 56.7 ng/mL (22.0-322.0); PTH INTACT 63.2 pg/mL (18.5-88.0); VITAMIN D, 25-HYDROXY 36.4 ng/mL (30-100)
[2018-07-04 10:12] LABS: BACTERIA TRACE; RBC 0-2 rbc/hpf (0-2)
== END | disposition home or self-care (01) ==
LOC: LAB 07:44
PROVIDERS: Internal Medicine Nephrology
DX: N17.9 Acute kidney failure, unspecified (principal); N18.3 Chronic kidney disease, stage 3 (moderate); I95.9 Hypotension, unspecified; D63.1 Anemia in chronic kidney disease; N25.81 Secondary hyperparathyroidism of renal origin; Z79.899 Other long term (current) drug therapy

== ENCOUNTER 2020-11-09 10:55 | Emergency (ER) | payer MEDICARE ==
[~2020-11-09] VITALS: Wt 88.9 kg
[2020-11-09 11:25] LABS: BASO % 0.4 % (0.0-1.0); EOS # 0.1 10*3/uL (0.0-0.4); EOS % 1.6 % (1.0-4.0); HEMATOCRIT 36.3 % (42.0-52.0); LYMPH # 0.7 10*3/uL (1.3-4.4); LYMPH % 10.7 % (27.0-41.0); MEAN CELL VOLUME 96.8 fl (80.0-94.0); MEAN CORPUSCULAR HGB 31.5 pg (27.0-31.0); MEAN CORPUSCULAR HGB CONC 32.5 g/dl (33.0-37.0); MONO # 0.5 10*3/uL (0.1-1.0); MONO % 7.6 % (3.0-9.0); NEUT # 5.3 10*3/uL (2.3-7.9); NEUT % 78.5 % (47.0-73.0); PLATELET COUNT AUTOMATED 205 10*3/uL (130-400); RED BLOOD COUNT 3.75 10*6/uL (4.50-5.90); RED CELL DISTRI WIDTH 12.7 % (0-14.5); WHITE BLOOD COUNT 6.8 10*3/uL (4.8-10.8)
[2020-11-09 11:36] LABS: ACT PARTIAL THROMBO TIME 25.6 SECONDS (20.0-32.1)
[2020-11-09 11:42] LABS: ALKALINE PHOSPHATASE 80 U/L (45-117); BUN 27 mg/dl (7-24); CHLORIDE 105 mmol/L (98-107); SGOT/AST 15 IU/L (3-35); SGPT/ALT 20 U/L (12-78); SODIUM 138 mmol/L (136-145); TOTAL PROTEIN 7.2 gm/dL (6.4-8.2)
[2020-11-09 11:44] LABS: TROPONIN I < 0.015 ng/ml (<0.045)
[2020-11-09 15:03] LABS: BILIRUBIN Negative (Negative); BLOOD Negative (Negative); CLARITY Clear (Clear); COLOR Yellow (Yellow); GLUCOSE 3+ (Negative); KETONE Negative (Negative); LEUKO ESTERASE Negative (Negative); NITRITE Negative (Negative); SPECIFIC GRAVITY >= 1.030 (1.001-1.030); UROBILINOGEN 0.2 E.U./dl (0.0-1.0)
[2020-11-09 15:05] LABS: BACTERIA TRACE
[2020-11-09 15:30] VITALS: BP 124/70
== END 2020-11-09 23:25 ==
LOC: ED 10:55
PROVIDERS: Emergency Medicine
DX: R41.82 Altered mental status, unspecified (principal); I65.21 Occlusion and stenosis of right carotid artery; R40.20 Unspecified coma; F03.90 Unspecified dementia, unspecified severity, without behavioral disturbance, psychotic disturbance, mood disturbance, and anxiety; I12.9 Hypertensive chronic kidney disease with stage 1 through stage 4 chronic kidney disease, or unspecified chronic kidney disease; E11.22 Type 2 diabetes mellitus with diabetic chronic kidney disease; N18.30 Chronic kidney disease, stage 3 unspecified; E11.40 Type 2 diabetes mellitus with diabetic neuropathy, unspecified; F32.9 Major depressive disorder, single episode, unspecified; I25.10 Atherosclerotic heart disease of native coronary artery without angina pectoris; E78.5 Hyperlipidemia, unspecified; Z79.899 Other long term (current) drug therapy; Z79.2 Long term (current) use of antibiotics; Z96.653 Presence of artificial knee joint, bilateral; Z98.890 Other specified postprocedural states

== ENCOUNTER 2020-11-15 13:46 | Inpatient (IN) | payer MEDICARE ==
[~2020-11-15] VITALS: Ht 185.4 cm; Wt 86.0 kg
[2020-11-15 13:55] VITALS: BP 135/71
[2020-11-15 14:23] LABS: BASO % 0.5 % (0.0-1.0); EOS # 0.1 10*3/uL (0.0-0.4); EOS % 2.4 % (1.0-4.0); LYMPH # 0.7 10*3/uL (1.3-4.4); MEAN CELL VOLUME 96.2 fl (80.0-94.0); MEAN CORPUSCULAR HGB CONC 32.3 g/dl (33.0-37.0); MONO # 0.6 10*3/uL (0.1-1.0); MONO % 9.3 % (3.0-9.0); NEUT # 4.4 10*3/uL (2.3-7.9); NEUT % 74.6 % (47.0-73.0); PLATELET COUNT AUTOMATED 185 10*3/uL (130-400); RED BLOOD COUNT 3.64 10*6/uL (4.50-5.90); RED CELL DISTRI WIDTH 13.1 % (0-14.5); WHITE BLOOD COUNT 5.9 10*3/uL (4.8-10.8)
[2020-11-15 14:38] LABS: ALBUMIN 2.8 gm/dl (3.1-4.5); ALKALINE PHOSPHATASE 83 U/L (45-117); BUN 24 mg/dl (7-24); CHLORIDE 105 mmol/L (98-107); CREATININE 1.66 mg/dL (0.70-1.30); POTASSIUM 4.3 mmol/L (3.5-5.1); SGOT/AST 17 IU/L (3-35); SGPT/ALT 25 U/L (12-78); SODIUM 138 mmol/L (136-145); TOTAL PROTEIN 6.9 gm/dL (6.4-8.2)
[2020-11-15 14:40] LABS: TROPONIN I < 0.015 ng/ml (<0.045)
[2020-11-15 16:46] VITALS: BP 105/55
[2020-11-15 19:46] VITALS: BP 108/63
[2020-11-15 20:00] VITALS: BP 106/64; BP 126/66
[2020-11-16] VITALS: BP 129/69
[2020-11-16] MEDS ORDERED: ARICEPT10 M1 PO (06:11)
[2020-11-16] MEDS ORDERED: ALLERGY RELIEF25 MG PO (06:12)
[2020-11-16] MEDS ORDERED: NAMENDA10 MG PO (06:13)
[2020-11-16] MEDS ORDERED: LEVOTHYROXINE50 MC1 PO (06:13)
[2020-11-16] MEDS ORDERED: JANUVIA50 MG PO (06:14)
[2020-11-16 06:26] LABS: BASO # 0.1 10*3/uL (0.0-0.1); BASO % 0.8 % (0.0-1.0); EOS # 0.2 10*3/uL (0.0-0.4); EOS % 3.1 % (1.0-4.0); HEMATOCRIT 34.6 % (42.0-52.0); MEAN CELL VOLUME 95.8 fl (80.0-94.0); MEAN CORPUSCULAR HGB 31.3 pg (27.0-31.0); MEAN CORPUSCULAR HGB CONC 32.7 g/dl (33.0-37.0); MEAN PLATELET VOLUME 9.3 fl (9.6-12.3); MONO # 0.7 10*3/uL (0.1-1.0); MONO % 10.2 % (3.0-9.0); NEUT # 4.4 10*3/uL (2.3-7.9); NEUT % 68.5 % (47.0-73.0); PLATELET COUNT AUTOMATED 214 10*3/uL (130-400); RED BLOOD COUNT 3.61 10*6/uL (4.50-5.90); WHITE BLOOD COUNT 6.5 10*3/uL (4.8-10.8)
[2020-11-16 06:33] LABS: ALKALINE PHOSPHATASE 87 U/L (45-117); BUN 22 mg/dl (7-24); CHLORIDE 109 mmol/L (98-107); CREATININE 1.29 mg/dL (0.70-1.30); FREE T4 1.04 ng/dl (0.76-1.46); POTASSIUM 4.1 mmol/L (3.5-5.1); SGOT/AST 20 IU/L (3-35); SGPT/ALT 27 U/L (12-78); SODIUM 140 mmol/L (136-145); TOTAL PROTEIN 7.1 gm/dL (6.4-8.2)
[2020-11-16 08:00] VITALS: BP 146/71
[2020-11-16 12:00] VITALS: BP 126/65
[2020-11-16 16:00] VITALS: BP 122/60
[2020-11-16 20:00] VITALS: BP 110/52
[2020-11-17] VITALS: BP 119/54
[2020-11-17 06:04] LABS: ALBUMIN 2.6 gm/dl (3.1-4.5); CREATININE 1.44 mg/dL (0.70-1.30); POTASSIUM 4.1 mmol/L (3.5-5.1); TOTAL PROTEIN 6.4 gm/dL (6.4-8.2)
[2020-11-17 06:14] LABS: BASO % 0.5 % (0.0-1.0); EOS # 0.2 10*3/uL (0.0-0.4); EOS % 2.9 % (1.0-4.0); HEMATOCRIT 30.3 % (42.0-52.0); LYMPH # 1.1 10*3/uL (1.3-4.4); LYMPH % 19.7 % (27.0-41.0); MEAN CELL VOLUME 95.9 fl (80.0-94.0); MEAN CORPUSCULAR HGB 31.3 pg (27.0-31.0); MEAN CORPUSCULAR HGB CONC 32.7 g/dl (33.0-37.0); MEAN PLATELET VOLUME 9.4 fl (9.6-12.3); MONO # 0.6 10*3/uL (0.1-1.0); MONO % 11.2 % (3.0-9.0); NEUT # 3.6 10*3/uL (2.3-7.9); NEUT % 64.4 % (47.0-73.0); PLATELET COUNT AUTOMATED 180 10*3/uL (130-400); RED BLOOD COUNT 3.16 10*6/uL (4.50-5.90); WHITE BLOOD COUNT 5.5 10*3/uL (4.8-10.8)
[2020-11-17 08:00] VITALS: BP 136/68
[2020-11-17 12:00] VITALS: BP 120/66
[2020-11-17 16:00] VITALS: BP 124/78
[2020-11-18] VITALS: BP 103/50
[2020-11-18 06:00] LABS: BASO % 0.8 % (0.0-1.0); EOS # 0.1 10*3/uL (0.0-0.4); EOS % 2.6 % (1.0-4.0); HEMATOCRIT 33.2 % (42.0-52.0); LYMPH # 0.9 10*3/uL (1.3-4.4); LYMPH % 18.4 % (27.0-41.0); MEAN CELL VOLUME 97.1 fl (80.0-94.0); MEAN CORPUSCULAR HGB 31.3 pg (27.0-31.0); MEAN CORPUSCULAR HGB CONC 32.2 g/dl (33.0-37.0); MEAN PLATELET VOLUME 9.4 fl (9.6-12.3); MONO # 0.6 10*3/uL (0.1-1.0); MONO % 11.2 % (3.0-9.0); NEUT # 3.3 10*3/uL (2.3-7.9); NEUT % 65.8 % (47.0-73.0); PLATELET COUNT AUTOMATED 205 10*3/uL (130-400); RED BLOOD COUNT 3.42 10*6/uL (4.50-5.90); RED CELL DISTRI WIDTH 12.8 % (0-14.5)
[2020-11-18 06:24] LABS: BUN 22 mg/dl (7-24); CHLORIDE 107 mmol/L (98-107); CREATININE 1.37 mg/dL (0.70-1.30); SODIUM 137 mmol/L (136-145)
[2020-11-18 08:00] VITALS: BP 116/60
[2020-11-18 10:22] LABS: BILIRUBIN Negative (Negative); BLOOD Negative (Negative); CLARITY Clear (Clear); COLOR Yellow (Yellow); GLUCOSE 1+ (Negative); KETONE Negative (Negative); LEUKO ESTERASE Negative (Negative); NITRITE Negative (Negative); PH 5.5 (4.5-8.0); UROBILINOGEN 0.2 E.U./dl (0.0-1.0)
[2020-11-18 10:40] LABS: RBC 0-2 rbc/hpf (0-2); WBC 0-2 wbc/hpf (0-5)
[2020-11-18 16:00] VITALS: BP 114/62
[2020-11-19] VITALS: BP 106/66
[2020-11-19 08:00] VITALS: BP 130/70
[2020-11-19] MEDS ORDERED: ROZEREM8 MG PO (10:36)
[2020-11-19 12:00] VITALS: BP 130/68
== END 2020-11-19 12:22 | DRG 312 ==
LOC: ED 13:46 → 5E 18:13 → EDHOLD 18:13 → 5E 19:39
PROVIDERS: Internal Medicine; Student in an Organized Health Care Education/Training Program; ADMIT Emergency Medicine; ATTEND Emergency Medicine
DX: R55 Syncope and collapse (principal); G93.41 Metabolic encephalopathy; E44.0 Moderate protein-calorie malnutrition; F03.90 Unspecified dementia, unspecified severity, without behavioral disturbance, psychotic disturbance, mood disturbance, and anxiety; I12.9 Hypertensive chronic kidney disease with stage 1 through stage 4 chronic kidney disease, or unspecified chronic kidney disease; E11.22 Type 2 diabetes mellitus with diabetic chronic kidney disease; N18.32 Chronic kidney disease, stage 3b; D53.9 Nutritional anemia, unspecified; E83.41 Hypermagnesemia; E78.5 Hyperlipidemia, unspecified; E11.42 Type 2 diabetes mellitus with diabetic polyneuropathy; E11.65 Type 2 diabetes mellitus with hyperglycemia; F32.9 Major depressive disorder, single episode, unspecified; Z96.653 Presence of artificial knee joint, bilateral; Z83.3 Family history of diabetes mellitus; Z79.899 Other long term (current) drug therapy; Z68.25 Body mass index [BMI] 25.0-25.9, adult

== ENCOUNTER 2021-02-08 01:18 | Emergency (ER) | payer MEDICARE ==
[~2021-02-08] VITALS: Ht 182.8 cm; Wt 88.5 kg
[~2021-02-08 01:18] MED LIST changes: +ALLERGY RELIEF25 MG PO; +ARICEPT10 M1 PO; +JANUVIA50 MG PO; +LEVOTHYROXINE50 MC1 PO; +NAMENDA10 MG PO; +ROZEREM8 MG PO
[2021-02-08 03:16] LABS: BASO % 0.3 % (0.0-1.0); EOS # 0.2 10*3/uL (0.0-0.4); EOS % 3.3 % (1.0-4.0); HEMATOCRIT 36.5 % (42.0-52.0); LYMPH # 1.3 10*3/uL (1.3-4.4); LYMPH % 18.1 % (27.0-41.0); MEAN CELL VOLUME 95.5 fl (80.0-94.0); MEAN CORPUSCULAR HGB 30.6 pg (27.0-31.0); MEAN CORPUSCULAR HGB CONC 32.1 g/dl (33.0-37.0); MEAN PLATELET VOLUME 9.8 fl (9.6-12.3); MONO # 0.6 10*3/uL (0.1-1.0); MONO % 8.5 % (3.0-9.0); NEUT # 4.9 10*3/uL (2.3-7.9); NEUT % 69.1 % (47.0-73.0); PLATELET COUNT AUTOMATED 180 10*3/uL (130-400); RED BLOOD COUNT 3.82 10*6/uL (4.50-5.90); RED CELL DISTRI WIDTH 13.5 % (0-14.5); WHITE BLOOD COUNT 7.1 10*3/uL (4.8-10.8)
[2021-02-08 03:33] LABS: ALBUMIN 3.1 gm/dl (3.1-4.5); CREATININE 1.72 mg/dL (0.70-1.30); POTASSIUM 4.2 mmol/L (3.5-5.1); TOTAL PROTEIN 7.3 gm/dL (6.4-8.2)
[2021-02-08 03:41] LABS: BILIRUBIN Negative (Negative); BLOOD Negative (Negative); CLARITY Clear (Clear); COLOR Yellow (Yellow); GLUCOSE Trace (Negative); KETONE Negative (Negative); LEUKO ESTERASE Negative (Negative); NITRITE Negative (Negative); PH 5.5 (4.5-8.0); SPECIFIC GRAVITY 1.015 (1.001-1.030); UROBILINOGEN 0.2 E.U./dl (0.0-1.0)
[2021-02-08 03:41] LABS: THYROID STIM HORMONE (HS) 2.48 uIU/ml (0.358-4.75)
[2021-02-08 04:27] LABS: BACTERIA TRACE
[2021-02-08 04:40] VITALS: BP 134/78
== END 2021-02-08 06:23 | disposition home or self-care (01) ==
LOC: ED 01:18
PROVIDERS: Emergency Medicine
DX: M75.101 Unspecified rotator cuff tear or rupture of right shoulder, not specified as traumatic (principal); I25.10 Atherosclerotic heart disease of native coronary artery without angina pectoris; I12.9 Hypertensive chronic kidney disease with stage 1 through stage 4 chronic kidney disease, or unspecified chronic kidney disease; E11.22 Type 2 diabetes mellitus with diabetic chronic kidney disease; N18.30 Chronic kidney disease, stage 3 unspecified; E78.5 Hyperlipidemia, unspecified; Z79.899 Other long term (current) drug therapy

== ENCOUNTER 2021-08-26 09:45 | Emergency (ER) | payer MEDICARE ==
[2021-08-26 10:19] LABS: BASO % 0.4 % (0.0-1.0); EOS # 0.2 10*3/uL (0.0-0.4); EOS % 2.3 % (1.0-4.0); HEMATOCRIT 35.4 % (42.0-52.0); LYMPH % 13.6 % (27.0-41.0); MEAN CELL VOLUME 99.2 fl (80.0-94.0); MEAN CORPUSCULAR HGB 33.3 pg (27.0-31.0); MEAN CORPUSCULAR HGB CONC 33.6 g/dl (33.0-37.0); MEAN PLATELET VOLUME 9.2 fl (9.6-12.3); MONO # 0.5 10*3/uL (0.1-1.0); MONO % 7.2 % (3.0-9.0); NEUT # 5.5 10*3/uL (2.3-7.9); NEUT % 75.4 % (47.0-73.0); PLATELET COUNT AUTOMATED 169 10*3/uL (130-400); RED BLOOD COUNT 3.57 10*6/uL (4.50-5.90); RED CELL DISTRI WIDTH 12.8 % (0-14.5); WHITE BLOOD COUNT 7.3 10*3/uL (4.8-10.8)
[2021-08-26 10:30] LABS: ACT PARTIAL THROMBO TIME 25.1 SECONDS (20.0-32.1)
[2021-08-26 10:35] LABS: CREATININE 1.83 mg/dL (0.70-1.30); POTASSIUM 4.4 mmol/L (3.5-5.1)
[2021-08-26] MEDS ORDERED: CELEXA20 MG PO (10:47)
[2021-08-26] MEDS ORDERED: HYDROXYZINE HCL25 MG PO (10:48)
[2021-08-26] MEDS ORDERED: VICTOZA 3-0.6 MG/0.1 SC (10:49)
[2021-08-26] MEDS ORDERED: B-12500 MC1 PO (10:50)
[2021-08-26] MEDS ORDERED: GVOKE HYPO1 MG/0.2 M SQ (10:51)
[2021-08-26] MEDS ORDERED: VOLTAREN ARTHRI20 GM T (10:53)
[2021-08-26 12:00] VITALS: BP 127/54
== END 2021-08-26 12:31 | disposition home or self-care (01) ==
LOC: ED 09:45
PROVIDERS: Emergency Medicine
DX: R40.20 Unspecified coma (principal); Z79.899 Other long term (current) drug therapy; Z98.890 Other specified postprocedural states; Z90.89 Acquired absence of other organs

== ENCOUNTER 2021-10-04 12:42 | Emergency (ER) | payer MEDICARE ==
[~2021-10-04] VITALS: Ht 185.4 cm; Wt 77.6 kg
[~2021-10-04 12:42] MED LIST changes: +B-12500 MC1 PO; +GVOKE HYPO1 MG/0.2 M SQ; +HYDROXYZINE HCL25 MG PO; +VICTOZA 3-0.6 MG/0.1 SC; +VOLTAREN ARTHRI20 GM T
[2021-10-04 13:18] LABS: BASO % 0.6 % (0.0-1.0); EOS # 0.1 10*3/uL (0.0-0.4); EOS % 2.1 % (1.0-4.0); HEMATOCRIT 34.3 % (42.0-52.0); LYMPH % 14.9 % (27.0-41.0); MEAN CELL VOLUME 100.6 fl (80.0-94.0); MEAN CORPUSCULAR HGB 33.7 pg (27.0-31.0); MEAN CORPUSCULAR HGB CONC 33.5 g/dl (33.0-37.0); MEAN PLATELET VOLUME 9.3 fl (9.6-12.3); MONO # 0.5 10*3/uL (0.1-1.0); MONO % 7.7 % (3.0-9.0); NEUT % 74.1 % (47.0-73.0); PLATELET COUNT AUTOMATED 161 10*3/uL (130-400); RED BLOOD COUNT 3.41 10*6/uL (4.50-5.90); RED CELL DISTRI WIDTH 12.7 % (0-14.5); WHITE BLOOD COUNT 6.8 10*3/uL (4.8-10.8)
[2021-10-04 13:30] LABS: ACT PARTIAL THROMBO TIME 22.8 SECONDS (20.0-32.1)
[2021-10-04 13:34] LABS: CREATININE 1.92 mg/dL (0.70-1.30); POTASSIUM 4.1 mmol/L (3.5-5.1); TOTAL PROTEIN 6.5 gm/dL (6.4-8.2)
[2021-10-04 14:29] LABS: BILIRUBIN Negative (Negative); BLOOD Negative (Negative); CLARITY Clear (Clear); COLOR Yellow (Yellow); GLUCOSE 2+ (Negative); KETONE Trace (Negative); LEUKO ESTERASE Negative (Negative); NITRITE Negative (Negative); UROBILINOGEN 0.2 E.U./dl (0.0-1.0)
[2021-10-04 14:48] LABS: RBC 0-2 rbc/hpf (0-2)
[2021-10-04 18:03] VITALS: BP 125/79
== END 2021-10-04 18:26 | disposition home or self-care (01) ==
LOC: ED 12:42
PROVIDERS: Emergency Medicine
DX: I95.9 Hypotension, unspecified (principal); I25.10 Atherosclerotic heart disease of native coronary artery without angina pectoris; E78.5 Hyperlipidemia, unspecified; E11.9 Type 2 diabetes mellitus without complications; I12.9 Hypertensive chronic kidney disease with stage 1 through stage 4 chronic kidney disease, or unspecified chronic kidney disease; N18.30 Chronic kidney disease, stage 3 unspecified; Z79.899 Other long term (current) drug therapy; Z98.890 Other specified postprocedural states; W18.39XA Other fall on same level, initial encounter; Y93.89 Activity, other specified; Y92.89 Other specified places as the place of occurrence of the external cause; Y99.8 Other external cause status

== ENCOUNTER 2021-11-11 12:47 | Inpatient (IN) | payer MEDICARE ==
[~2021-11-11] VITALS: Ht 185.4 cm; Wt 81.7 kg
[2021-11-11] VITALS: BP 114/71
[~2021-11-11 12:47] MED LIST changes: +ARTHRITIS PAIN650 MG PO; +MIDODRINE HCL5 M1 PO
[2021-11-11 12:52] VITALS: BP 116/77
[2021-11-11 13:16] LABS: BASO % 0.6 % (0.0-1.0); EOS # 0.1 10*3/uL (0.0-0.4); EOS % 1.9 % (1.0-4.0); HEMATOCRIT 31.5 % (42.0-52.0); LYMPH # 1.1 10*3/uL (1.3-4.4); LYMPH % 16.7 % (27.0-41.0); MEAN CORPUSCULAR HGB 32.7 pg (27.0-31.0); MEAN CORPUSCULAR HGB CONC 32.7 g/dl (33.0-37.0); MEAN PLATELET VOLUME 8.9 fl (9.6-12.3); MONO # 0.7 10*3/uL (0.1-1.0); MONO % 9.5 % (3.0-9.0); NEUT # 4.7 10*3/uL (2.3-7.9); NEUT % 69.3 % (47.0-73.0); PLATELET COUNT AUTOMATED 161 10*3/uL (130-400); RED BLOOD COUNT 3.15 10*6/uL (4.50-5.90); RED CELL DISTRI WIDTH 13.2 % (0-14.5); WHITE BLOOD COUNT 6.8 10*3/uL (4.8-10.8)
[2021-11-11 13:26] LABS: ACT PARTIAL THROMBO TIME 25.6 SECONDS (20.0-32.1)
[2021-11-11 13:33] LABS: ALKALINE PHOSPHATASE 89 U/L (45-117); BUN 28 mg/dl (7-24); CHLORIDE 113 mmol/L (98-107); CREATININE 1.69 mg/dL (0.70-1.30); LIPASE 383 U/L (73-393); SGOT/AST 14 IU/L (3-35); SGPT/ALT 21 U/L (12-78); SODIUM 142 mmol/L (136-145); TOTAL PROTEIN 6.2 gm/dL (6.4-8.2)
[2021-11-11 15:02] LABS: BILIRUBIN Negative (Negative); BLOOD Negative (Negative); CLARITY Clear (Clear); COLOR Yellow (Yellow); GLUCOSE 1+ (Negative); KETONE Negative (Negative); LEUKO ESTERASE Negative (Negative); NITRITE Negative (Negative); UROBILINOGEN 0.2 E.U./dl (0.0-1.0)
[2021-11-11 15:32] LABS: BACTERIA TRACE; WBC 0-2 wbc/hpf (0-5)
[2021-11-11 16:00] VITALS: BP 114/71
[2021-11-11 18:34] VITALS: BP 121/64
[2021-11-11 19:50] VITALS: BP 148/64
[2021-11-12] VITALS: BP 114/71
[2021-11-12 06:00] LABS: CREATININE 1.56 mg/dL (0.70-1.30); FREE T4 0.93 ng/dl (0.76-1.46); POTASSIUM 4.5 mmol/L (3.5-5.1); TOTAL PROTEIN 6.5 gm/dL (6.4-8.2)
[2021-11-12 06:05] LABS: THYROID STIM HORMONE (HS) 0.884 uIU/ml (0.358-4.75)
[2021-11-12 06:27] LABS: BASO % 0.5 % (0.0-1.0); EOS # 0.2 10*3/uL (0.0-0.4); EOS % 1.9 % (1.0-4.0); HEMATOCRIT 33.7 % (42.0-52.0); LYMPH # 1.3 10*3/uL (1.3-4.4); LYMPH % 15.2 % (27.0-41.0); MEAN PLATELET VOLUME 9.6 fl (9.6-12.3); MONO # 0.6 10*3/uL (0.1-1.0); MONO % 7.4 % (3.0-9.0); NEUT # 6.2 10*3/uL (2.3-7.9); NEUT % 73.6 % (47.0-73.0); PLATELET COUNT AUTOMATED 182 10*3/uL (130-400); RED BLOOD COUNT 3.27 10*6/uL (4.50-5.90); RED CELL DISTRI WIDTH 13.1 % (0-14.5); WHITE BLOOD COUNT 8.4 10*3/uL (4.8-10.8)
[2021-11-12 06:45] LABS: MEAN CELL VOLUME 103.1 fl (80.0-94.0)
[2021-11-12 08:00] VITALS: BP 104/61
[2021-11-12 08:29] LABS: VITAMIN D, 25-HYDROXY 45.8 ng/mL (30-100)
[2021-11-12 11:36] VITALS: BP 138/68
== END 2021-11-12 13:31 | DRG 72 ==
LOC: ED 12:47 → 5E 18:07 → EDHOLD 18:07 → 5E 18:23
PROVIDERS: Emergency Medicine; Family Medicine; ADMIT Internal Medicine; ATTEND Internal Medicine
DX: G93.41 Metabolic encephalopathy (principal); I12.9 Hypertensive chronic kidney disease with stage 1 through stage 4 chronic kidney disease, or unspecified chronic kidney disease; E11.22 Type 2 diabetes mellitus with diabetic chronic kidney disease; N18.32 Chronic kidney disease, stage 3b; K74.60 Unspecified cirrhosis of liver; Z96.653 Presence of artificial knee joint, bilateral; F03.90 Unspecified dementia, unspecified severity, without behavioral disturbance, psychotic disturbance, mood disturbance, and anxiety; I25.10 Atherosclerotic heart disease of native coronary artery without angina pectoris; E03.9 Hypothyroidism, unspecified; F32.9 Major depressive disorder, single episode, unspecified; E78.5 Hyperlipidemia, unspecified; E11.42 Type 2 diabetes mellitus with diabetic polyneuropathy; E55.9 Vitamin D deficiency, unspecified; D53.9 Nutritional anemia, unspecified; Z83.3 Family history of diabetes mellitus; R32 Unspecified urinary incontinence

== ENCOUNTER 2021-12-15 00:42 | Emergency (ER) | payer MEDICARE ==
[2021-12-15 00:45] VITALS: BP 115/64
== END 2021-12-15 03:10 | disposition home or self-care (01) ==
LOC: ED 00:42
DX: S00.93XA Contusion of unspecified part of head, initial encounter (principal); S80.211A Abrasion, right knee, initial encounter; G31.83 Neurocognitive disorder with Lewy bodies; F02.80 Dementia in other diseases classified elsewhere, unspecified severity, without behavioral disturbance, psychotic disturbance, mood disturbance, and anxiety; I10 Essential (primary) hypertension; E11.9 Type 2 diabetes mellitus without complications; I25.10 Atherosclerotic heart disease of native coronary artery without angina pectoris; E78.5 Hyperlipidemia, unspecified; E03.9 Hypothyroidism, unspecified; Z79.899 Other long term (current) drug therapy; W18.39XA Other fall on same level, initial encounter; Y93.89 Activity, other specified; Y92.89 Other specified places as the place of occurrence of the external cause; Y99.8 Other external cause status